=== PATIENT | female | born 1985 | race Caucasian/White ===

== ENCOUNTER 2016-07-27 11:18 | Emergency (ER) | payer OTHER ==
[~2016-07-27] VITALS: Ht 162.6 cm; Wt 56.9 kg
[2016-07-27 11:25] VITALS: TEMP 36.8; Ht 162.6 cm; Wt 56.9 kg
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
[2016-07-27] MEDS ORDERED: SERT50TA PO (11:50)
[2016-07-27] MEDS ORDERED: TRMCR130WC TOP (11:50)
[2016-07-27] MEDS ORDERED: VNTHFA/IN INH (11:50)
[2016-07-27] MEDS ORDERED: PANT40TA PO (11:50)
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
--- NOTE | 2016-07-27 12:25 | DIAGNOSTIC IMAGING REPORT ---
CERVICAL SPINE CT CT DOSE: HISTORY: Trauma neck pain TECHNIQUE: Multiaxial CT images of the cervical spine were performed and reformatted in the sagittal and coronal plane without the use of contrast. COMPARISON: None. FINDINGS: No fractures. No subluxation. Prevertebral soft tissues and the C1-C2 interval are intact. No pneumothorax. Cervical scoliosis most likely a positional and/or muscular spasm basis. IMPRESSION: No fractures within the cervical spine. Scoliosis most likely secondary to muscular spasm. Electronically signed by: Omid Caro M.D. 07/27/2016 12:23 PM Dictated Date/Time: 07/27/2016 12:22 PM
[2016-07-27] MEDS ORDERED: META1TAB22 PO (12:41)
[2016-07-27 12:54] VITALS: BP 130/93; PULSE 67; O2SAT 98
--- NOTE | 2016-07-27 13:37 | Pharmacy Progress Note ---
ED Pharmacist Progress Note Date of Service: July 27, 2016. Received call from [facility] pharmacy - Skelaxin not covered by patient's insurance. Prescription for methocarbamol 500 mg po QID prn muscle spasm called to [facility] with instructions to cancel Skelaxin. Case discussed with Ilana Galeana PA-C, who is the prescribing provider.
== END 2016-07-27 12:54 | disposition home or self-care (01) ==
LOC: C.EDB 11:21 → C.EDD 12:54
DX: S09.90XA Unspecified injury of head, initial encounter (principal); S16.1XXA Strain of muscle, fascia and tendon at neck level, initial encounter; W20.8XXA Other cause of strike by thrown, projected or falling object, initial encounter; K21.9 Gastro-esophageal reflux disease without esophagitis; F41.9 Anxiety disorder, unspecified; L30.9 Dermatitis, unspecified; J45.909 Unspecified asthma, uncomplicated